=== PATIENT | male | born 1970 | race Caucasian/White ===

== ENCOUNTER 2016-07-30 13:32 | Emergency (ER) | payer BC ==
[~2016-07-30] VITALS: Ht 175.3 cm; Wt 90.7 kg
[2016-07-30 14:02] VITALS: BP 142/102
[2016-07-30] MEDS ORDERED: HYDR-971 PO (14:25)
--- NOTE | 2016-07-30 14:25 | PHYS DOC ---
Past Medical History Past Medical History: High Cholesterol, Hypertension, Hypothyroid Past Surgical History: No Surgical History Alcohol Use: None Drug Use: None Adult General Chief Complaint Chief Complaint: LACERATION/AVULSION HPI HPI Patient is a 45 year old male comes emergency room today with complaint of a laceration to his right fifth finger that occurred within the past hour. Patient states he was working on his car when he was pulling his hand back out and cut it on a metal edge of the motor compartment. He denies any additional injuries or concerns at this time. He denies any numbness or tingling to his right fifth finger. He asked that had a tetanus shot within the past 2 years for laceration repair that was done at this facility as well. Review of Systems Review of Systems Constitutional: Denies fever or chills [] Eyes: Denies change in visual acuity, redness, or eye pain [] HENT: Denies nasal congestion or sore throat [] Respiratory: Denies cough or shortness of breath [] Cardiovascular: No additional information not addressed in HPI [] GI: Denies abdominal pain, nausea, vomiting, bloody stools or diarrhea [] : Denies dysuria or hematuria [] Musculoskeletal: Denies back pain or joint pain [] Integument: Denies rash or skin lesions [] Neurologic: Denies headache, focal weakness or sensory changes [] Endocrine: Denies polyuria or polydipsia [] Current Medications Current Medications Current Medications Medications (Trade) Dose Ordered Sig/Saba Start Time Stop Time Status Last Admin Dose Admin Diphtheria/ Tetanus/Acell Pertussis (Boostrix) 0.5 ml ONCE ONCE 07/30/16 14:30 07/30/16 14:31 Cancel Lidocaine/Sodium Bicarbonate (Buffered Lidocaine 1%) 20 ml 1X ONCE 07/30/16 14:30 07/30/16 14:31 DC 07/30/16 14:32 20 ML Allergies Allergies Allergies Coded Allergies Type Severity Reaction Last Updated Verified No Known Drug Allergies 12/19/14 No Physical Exam Physical Exam Constitutional: Well developed, well nourished, no acute distress, non-toxic appearance. [] HENT: Normocephalic, atraumatic, bilateral external ears normal, oropharynx moist, no oral exudates, nose normal. [] Eyes: PERRLA, EOMI, conjunctiva normal, no discharge. [] Neck: Normal range of motion, no tenderness, supple, no stridor. [] Cardiovascular:Heart rate regular rhythm, no murmur [] Lungs & Thorax: Bilateral breath sounds clear to auscultation [] Abdomen: Bowel sounds normal, soft, no tenderness, no masses, no pulsatile masses. [] Skin: Warm, dry, no erythema, no rash. [] Back: No tenderness, no CVA tenderness. [] Extremities: Approximate 3.5 cm laceration that extends into the subcutaneous fat of the palmar surface of the proximal phalanx. There is no active bleeding. Patient is able to flex and extend at both the PIPJ and the DIPJ. Fingers warm and dry. Capillary refill is less than 2 seconds. Neurologic: Alert and oriented X 3, normal motor function, normal sensory function, no focal deficits noted. [] Psychologic: Affect normal, judgement normal, mood normal. [] Current Patient Data Vital Signs Vital Signs Date Time Temp Pulse Resp B/P Pulse Ox O2 Delivery O2 Flow Rate FiO2 07/30/16 14:02 97.8 72 14 98 Room Air 97.8 EKG EKG [] Radiology/Procedures Radiology/Procedures Procedure note: 3.5 similar laceration of the base of the right fifth finger, palmar aspect was anesthetized with buffered 1% lidocaine. Wound was cleansed with Betadine solution and rinsed with copious amounts of saline. Wound was explored for foreign bodies. No foreign bodies were found. The laceration does not extend into a joint space or involve the flexor tendons. Wound margins were approximated utilizing 5-0 nylon in a simple interrupted fashion of a single- layer closure for total of 7 stitches. Patient tolerated the procedure well. Course & Med Decision Making Course & Med Decision Making Pertinent Labs and Imaging studies reviewed. (See chart for details) [] Dragon Disclaimer Dragon Disclaimer This electronic medical record was generated, in whole or in part, using a voice recognition dictation system. Departure Departure Impression: Primary Impression: Laceration Disposition: 01 HOME, SELF-CARE Condition: IMPROVED Referrals: ANGEL BELL APRN (PCP) Patient Instructions: Laceration Care, Adult, [id number] Additional Instructions: 1. Review the discharge instructions provided for self-care and reasons to return to the emergency department. 2. Sutures should be removed in 10 days. 3. Take the medication as prescribed. You did have a tetanus shot in 2014. 4. Follow-up with your primary care doctor on Thursday or Thursday of next week for wound check. Scripts Hydrocodone/Apap 5-325 ([place] 5-325 Tablet)1 Each Tablet1 Tab PO PRN Q6HRS PRN PAIN #10 TAB Prov:LY ESPAÑA 07/30/16 LY ESPAÑA July 30, 2016 14:25
[2016-07-30] MEDS ORDERED: LIDOCAINE 1% / SOD BICARB 8.4% 20 ML VIAL. IJ ONE (14:30)
[2016-07-30] MEDS ORDERED: DIPHTH,PERTUSS(ACELL),TET TOX 0.5 ML DISP.SYRIN. VAX IM ONE (14:30)
== END 2016-07-30 14:57 | disposition home or self-care (01) ==
LOC: ER 13:32
DX: S61.216A Laceration without foreign body of right little finger without damage to nail, initial encounter (principal); E78.00 Pure hypercholesterolemia, unspecified; I10 Essential (primary) hypertension; E03.9 Hypothyroidism, unspecified; W45.8XXA Other foreign body or object entering through skin, initial encounter; Y93.89 Activity, other specified; Y92.89 Other specified places as the place of occurrence of the external cause; Y99.8 Other external cause status
CPT/HCPCS: 12002; 99283-25